=== PATIENT | female | born 1975 | race Caucasian/White ===

== ENCOUNTER 2019-06-03 11:36 | Emergency (ER) | payer MEDICAID, OTHER ==
[~2019-06-03] VITALS: Ht 172.7 cm; Wt 95.5 kg
[2019-06-03 11:59] VITALS: BP 146/84
[2019-06-03] MEDS ORDERED: ACETAMINOPHEN 500 MG TABLET PO ONE (12:45)
== END 2019-06-03 13:02 | disposition home or self-care (01) ==
LOC: EMS 11:38
DX: S63.682A Other sprain of left thumb, initial encounter (principal); S00.81XA Abrasion of other part of head, initial encounter; Y08.89XA Assault by other specified means, initial encounter; Y93.89 Activity, other specified; Y92.89 Other specified places as the place of occurrence of the external cause; Y99.8 Other external cause status